=== PATIENT | male | born 1955 | race Caucasian/White ===

== ENCOUNTER 2022-08-03 08:01 | Outpatient (REF) | payer OTHER, SELFPAY ==
--- NOTE | ~2022-08-03 | XR_ITS ---
EXAMINATION: XR CHEST CLINICAL INFORMATION: Bariatric service evaluation, E66.01. COMPARISON: None TECHNIQUE: 2 views of the chest were obtained. FINDINGS: There are low lung volumes. The lungs are clear and the vascularity is normal. There is no airspace consolidation or groundglass opacity or effusion. The costophrenic sulci are clear. The heart is normal in size. The hilar and mediastinal contours are normal. There are multilevel degenerative changes thoracic spine. Moderate loss of height lower thoracic vertebral body as noted on lateral view with mild loss of height adjacent more superior vertebral body. No paraspinal soft tissue swelling. XR/XR chest 2V IMPRESSION: -Lungs clear. No acute intrathoracic disease. -Multilevel degenerative changes thoracic spine. Loss of height two lower thoracic vertebral bodies.
--- NOTE | 2022-08-03 08:17 | ECG_ITS ---
Test Reason : morbid obesity Blood Pressure : / mmHG Vent. Rate : 093 BPM Atrial Rate : 093 BPM P-R Int : 150 ms QRS Dur : 106 ms QT Int : 358 ms P-R-T Axes : 035 -32 025 degrees QTc Int : 445 ms Normal sinus rhythm Left anterior fascicular block Intra-ventricular conduction delay Minimal voltage criteria for LVH, may be normal variant ( R in aVL ) Abnormal ECG No previous ECGs available Referred By: Cristy Bolden Electronically Signed By:GUILLERMINA JARVIS MD
[2022-08-03 08:22] LABS: MANUAL DIFF FLAG NO
[2022-08-03 09:03] LABS: Basophils Absolute Auto 0.1 X10*3/uL (0.0-0.2); Basophils Percent Auto 0.9 % (0-2); Eosinophils Absolute Auto 0.2 X10*3/uL (0.0-0.4); Eosinophils Percent Auto 4.3 % (0-4); Hematocrit 44.1 % (42.0-52.0); Hemoglobin 14.5 g/dl (14.0-18.0); Imm Gran Abs Auto 0.01 X10*3/uL (0.00-0.03); Imm Gran Pct Auto 0.2 % (0.0-0.4); Lymphocytes Absolute Auto 2.3 X10*3/uL (1.2-4.9); Lymphocytes Percent Auto 39.9 % (20-40); Mean Corpuscular HGB Conc 32.9 g/dl (31.0-36.0); Mean Corpuscular Hemoglobin 30.1 pg (27.0-33.0); Mean Corpuscular Volume 91.5 fL (80.0-98.0); Mean Platelet Volume 10.1 fL (9.4-12.4); Monocytes Absolute Auto 0.5 X10*3/uL (0.1-1.2); Monocytes Percent Auto 9.2 % (2-11); Neutrophils Absolute Auto 2.6 x10*3/uL (2.0-8.3); Neutrophils Percent Auto 45.5 % (45-73); Platelet Count 279 X10*3/uL (160-400); Red Blood Count 4.82 X10*6/uL (4.60-5.80); Red Cell Distribution Width 12.8 % (11.0-16.0); White Blood Count 5.6 X10*3/uL (4.8-10.8)
[2022-08-03 09:06] LABS: Estimated Average Glucose 151 mg/dL; Hemoglobin A1c % 6.9 %
[2022-08-03 10:14] LABS: Alanine Aminotransferase 52 U/L (0-40); Albumin Level 4.2 g/dL (3.5-5.0); Alkaline Phosphatase 57 U/L (39-117); Anion Gap 14 (12-20); Aspartate Amino Transferase 26 U/L (5-37); Bilirubin Total 0.5 mg/dL (0.0-1.0); Blood Urea Nitrogen 13 mg/dL (9-16); C Reactive Protein 0.11 mg/dL (< or = 0.50); Calcium 9.2 mg/dL (8.4-10.2); Carbon Dioxide 24 mmol/L (22-29); Chloride 103 mmol/L (96-108); Cholesterol 143 mg/dL; Estimated Glomerular Filt Rate > 60; Ferritin 122 ng/mL (20-250); Glucose Random 118 mg/dL (60-115); HDL Cholesterol 32 mg/dL; Insulin 18 uU/mL (2-29); Iron 106 mcg/dL (45-160); LDL Cholesterol Calculated 83 mg/dl; Percent Iron Saturation 34 % (15-50); Potassium 4.2 mmol/L (3.3-5.1); Sodium 137 mmol/L (135-145); TSH reflex Free T4 3.77 uIU/mL (0.32-4.0); Total Iron Binding Capacity 311 mcg/dL (228-428); Total Protein 7.4 g/dL (6.5-8.0); Triglycerides 140 mg/dL; Unsaturated Iron Binding 205 ug/dL; Vitamin D 25-OH Total 33.6 ng/mL (>30)
[2022-08-03 10:26] LABS: Folate 16.1 ng/mL (> or = 4.0); Vitamin B12 682 pg/mL (200-900)
[2022-08-05 12:22] LABS: Calcium (PTHI) 9.4 mg/dL (8.6-10.3); PTHI 47 pg/mL (16-77)
[2022-08-07 00:34] LABS: Zinc 82 mcg/dL (60-130)
[2022-08-07 14:38] LABS: Vitamin A 55 mcg/dL (38-98)
[2022-08-08 14:28] LABS: Vitamin B1 19 nmol/L (8-30)
== END 2022-08-03 08:02 | disposition home or self-care (01) ==
LOC: HO.XRAY 08:01
PROVIDERS: PCP Internal Medicine; Visit Provider Physician Assistant
DX: E66.01 Morbid (severe) obesity due to excess calories (principal); I10 Essential (primary) hypertension; E11.9 Type 2 diabetes mellitus without complications; G47.33 Obstructive sleep apnea (adult) (pediatric); E78.5 Hyperlipidemia, unspecified; Z99.89 Dependence on other enabling machines and devices; Z90.3 Acquired absence of stomach [part of]
CPT/HCPCS: 36415; 71046; 80053; 80061; 82306; 82607; 82728; 82746; 83036; 83525; 83540; 83970; 84425; 84443; 84590; 84630; 85025; 86140; 93005

== ENCOUNTER 2022-08-18 07:08 | Outpatient (REF) | payer OTHER, SELFPAY ==
--- NOTE | ~2022-08-18 | CT_ITS ---
EXAMINATION: CT ABDOMEN AND PELVIS WITHOUT CONTRAST CLINICAL INFORMATION: Morbid/severe obesity due to excess calories. COMPARISON: None TECHNIQUE: Multidetector volumetric imaging was performed from the superior aspect of the liver through the pubic symphysis following oral contrast and Valsalva maneuver. Sagittal and coronal reformatted images were obtained on the technologist's workstation. This CT examination was performed using dose optimization techniques as appropriate, variously including the following: *Automated exposure control *Adjustment of mA and/or kV according to patient size (this includes techniques or standardized protocols for targeted exams where dose is matched to indication/reason for exam; i.e. extremities or head) *Use of iterative reconstruction technique DLP: 1092 mGy-cm FINDINGS: LUNG BASES: Mild atelectatic changes are seen in the right and minimal atelectatic changes in left lung base. LIVER, GALLBLADDER, AND BILIARY TREE: The liver is normal in size, shape, and attenuation. No focal hepatic lesion or biliary ductal dilatation is present. The gallbladder has been surgically removed. PANCREAS: Unremarkable. SPLEEN: Unremarkable. ADRENAL GLANDS: Unremarkable. KIDNEYS AND URETERS: The kidneys are normal in size, shape, and attenuation. There is a 6 mm nonobstructive radiopaque calculi lower pole and 3 mm nonobstructive calculi midpole right kidney without caliectasis or hydronephrosis. No radiopaque calculi are seen in left kidney. There is no hydronephrosis either. No perinephric stranding seen. BLADDER: Unremarkable. GASTROINTESTINAL TRACT: There is moderate scattered stool in the colon without distention. The small bowel loops are normal caliber. The appendix is faintly visualized within the herniated sac and appears normal. There is no free fluid. The stomach is nondistended. ABDOMINAL WALL: There is a large anterior abdominal wall hernia with a large wide neck measuring 17 cm wide and 6.8 cm in craniocaudad length. There are segments of peritoneum, transverse colon and small bowel loops within but no signs of obstruction or inflammatory process. There is gastric sleeve surgery of the stomach. LYMPH NODES: Normal. VASCULAR: Unremarkable. PELVIC VISCERA: Unremarkable. OSSEOUS STRUCTURES: No lytic or sclerotic process seen. There are degenerative disc changes at L5-S1 and T11-T12 disc levels. There is moderate ventral spondylosis throughout dorsal spine. No aggressive lytic or sclerotic process seen. CT/CT abdomen pelvis wo IV con IMPRESSION: 1. Large anterior abdominal wall hernia containing segments of small bowel, transverse colon and peritoneal fat. No signs of bowel obstruction or inflammatory process seen. 2. Nonobstructive radiopaque calculi lower pole and midpole right kidney. No hydronephrosis. 3. Moderate constipation without acute process. Fleischner guidelines were followed.
[2022-08-18] MEDS: Barium Sulfate Oral (Berry) 450 ML ORAL.SUSP 900 ML PO (09:21)
== END 2022-08-18 07:09 | disposition home or self-care (01) ==
LOC: HO.CT 07:08
PROVIDERS: PCP Internal Medicine; Visit Provider Physician Assistant
DX: E66.01 Morbid (severe) obesity due to excess calories (principal); Z90.3 Acquired absence of stomach [part of]; Z98.890 Other specified postprocedural states; Z87.19 Personal history of other diseases of the digestive system
CPT/HCPCS: 74176

== ENCOUNTER 2022-08-20 15:25 | Outpatient (REF) | payer OTHER, SELFPAY ==
[2022-08-21 14:11] LABS: H Pylori Breath Test Negative (Negative)
== END 2022-08-20 15:26 | disposition home or self-care (01) ==
LOC: HO.LNP 15:25
PROVIDERS: Visit Provider Physician Assistant
DX: E66.01 Morbid (severe) obesity due to excess calories (principal); I10 Essential (primary) hypertension; E11.9 Type 2 diabetes mellitus without complications; G47.33 Obstructive sleep apnea (adult) (pediatric); E78.5 Hyperlipidemia, unspecified; Z99.89 Dependence on other enabling machines and devices; Z90.3 Acquired absence of stomach [part of]; Z11.0 Encounter for screening for intestinal infectious diseases
CPT/HCPCS: 83013

== ENCOUNTER → 2022-08-28 08:37 | Outpatient (BNVA) | payer OTHER, SELFPAY | PROVIDERS: PCP Internal Medicine; Referring Provider Physician Assistant; Visit Provider Dietitian, Registered | DX: E66.01 Morbid (severe) obesity due to excess calories (principal); Z68.42 Body mass index [BMI] 45.0-49.9, adult | CPT/HCPCS: 97802 ==

== ENCOUNTER → 2022-09-11 08:20 | Outpatient (BNVA) | payer MEDICARE, OTHER, SELFPAY | PROVIDERS: PCP Internal Medicine; Visit Provider Physician Assistant | DX: E66.01 Morbid (severe) obesity due to excess calories (principal); Z68.42 Body mass index [BMI] 45.0-49.9, adult | CPT/HCPCS: 99212 ==

== ENCOUNTER 2022-09-17 07:30 | Outpatient (REF) | payer MEDICARE, OTHER, SELFPAY ==
--- NOTE | ~2022-09-17 | US_ITS ---
EXAMINATION: US COMPLETE ABDOMEN WITH LIVER ELASTOGRAPHY CLINICAL INFORMATION: Morbid obesity due to excess calories COMPARISON: CT abdomen and pelvis 06/18/2022. TECHNIQUE: Real-time imaging of the abdominal viscera. Noninvasive ultrasound liver fibrosis assessment is performed using Dominic ElastPQ point quantification shear wave elastography (2D-SWE) with a C5-2 MHz transducer. Multiple elastography samples are obtained. FINDINGS: PANCREAS: Normal. The visualized pancreatic head and body are normal in appearance. The remainder of the pancreas is obscured from visualization by the overlying bowel gas. ABDOMINAL AORTA: The proximal aorta is normal in caliber. The remainder of the aorta is obscured by bowel gas. INFERIOR VENA CAVA: Visualized portions are normal. LIVER: Diffusely increased hepatic echogenicity and sound attenuation consistent with diffuse hepatic steatosis. The right lobe measures 19.6 cm in length. The left lobe measures 8.7 cm in length. Portal flow is towards the liver (hepatopetal). Shear wave liver elastography median stiffness is 2.52 m/s (reference: normal median stiffness is 1.3 m/s or less). IQR/median stiffness to assess sampling precision is 0.19 (reference: good quality data set is IQR/median stiffness of 0.15 or less). GALLBLADDER: Cholecystectomy. COMMON BILE DUCT: Not seen. RIGHT KIDNEY: 9 mm echogenic, shadowing, nonobstructing right lower pole calculus. No hydronephrosis. No focal parenchymal lesions. The kidney measures 14.2 cm in maximum dimension. LEFT KIDNEY: Normal. No hydronephrosis. No renal calculi or focal parenchymal lesions. The kidney measures 13.2 cm in maximum dimension. SPLEEN: Normal. The spleen measures 9.0 cm in maximum dimension. FREE FLUID: None. US/US abdomen comp w elastography IMPRESSION: 1. Findings consistent with diffuse hepatic steatosis. Prior cholecystectomy. No biliary ductal dilatation. Nonobstructing 9 mm right lower pole renal calculus. 2. Liver elastography: Although measurements appear suggestive of clinically significant portal hypertension, there is statistical variability of the sampling which decreases accuracy. REFERENCE: Society of Radiologists in Ultrasound Liver Stiffness Thresholds (2019): LIVER STIFFNESS THRESHOLDS: *Liver Stiffness over 2.4 m/s: Suggestive of clinically significant portal hypertension. QUALITY OF DATA SET: *IQR/Median value over 0.15 implies a poor quality data set. OTHER CONSIDERATIONS: The stage of liver fibrosis may be overestimated in the setting of acute hepatitis, liver inflammation, elevated liver function tests, hepatic vascular congestion, obstructive cholestasis, non-fasting state, and infiltrative diseases such as amyloidosis and lymphoma. In some patients with NAFLD, the liver stiffness thresholds for compensated advanced chronic liver disease may be lower. In causes other than viral hepatitis and NAFLD, liver stiffness thresholds are not well established.
== END 2022-09-17 07:31 | disposition home or self-care (01) ==
LOC: HO.US 07:30
PROVIDERS: PCP Internal Medicine; Visit Provider Physician Assistant
DX: E66.01 Morbid (severe) obesity due to excess calories (principal); G47.33 Obstructive sleep apnea (adult) (pediatric); E11.9 Type 2 diabetes mellitus without complications; E78.5 Hyperlipidemia, unspecified; I10 Essential (primary) hypertension; Z90.3 Acquired absence of stomach [part of]; Z99.89 Dependence on other enabling machines and devices
CPT/HCPCS: 76705; 76981

== ENCOUNTER → 2022-09-23 12:30 | Outpatient (BNVA) | payer OTHER, MEDICARE, SELFPAY | PROVIDERS: PCP Internal Medicine; Referring Provider Physician Assistant; Visit Provider Counselor Mental Health | DX: F43.22 Adjustment disorder with anxiety (principal); E66.01 Morbid (severe) obesity due to excess calories; Z98.84 Bariatric surgery status; Z87.19 Personal history of other diseases of the digestive system; Z98.890 Other specified postprocedural states | CPT/HCPCS: 90791 ==

== ENCOUNTER → 2022-10-23 11:00 | Outpatient (BNVA) | payer MEDICARE, OTHER, SELFPAY | PROVIDERS: PCP Internal Medicine; Visit Provider Physician Assistant | DX: E66.01 Morbid (severe) obesity due to excess calories (principal); Z68.42 Body mass index [BMI] 45.0-49.9, adult; Z87.19 Personal history of other diseases of the digestive system; Z90.49 Acquired absence of other specified parts of digestive tract; Z96.642 Presence of left artificial hip joint; Z98.890 Other specified postprocedural states; Z90.3 Acquired absence of stomach [part of]; Z98.84 Bariatric surgery status | CPT/HCPCS: 90834; 99212; Q3014 ==

== ENCOUNTER 2022-10-27 09:29 | Outpatient (REF) | payer MEDICARE, OTHER, SELFPAY ==
--- NOTE | ~2022-10-27 | FL_ITS ---
EXAMINATION: XR FLUOROSCOPY UPPER GI WITH AIR CLINICAL INFORMATION: Obesity COMPARISON: None TECHNIQUE: Upper GI was performed using thin and thick barium and effervescent granules FINDINGS: Esophageal motility is normal. There is a small sliding-type hiatal hernia. There is mild gastroesophageal reflux. The stomach and duodenum are normal-appearing. No fold thickening, mass, ulcer or stricture is seen. FLUOROSCOPY TIME: 0.4 minutes DOSE AREA PRODUCT: 7 bro per centimeter squared. 18 saved fluoroscopic images. FL/FL upper GI w air IMPRESSION: Small sliding-type hiatal hernia. Mild gastroesophageal reflux.
== END 2022-10-27 09:30 | disposition home or self-care (01) ==
LOC: HO.XRAY 09:29
PROVIDERS: Visit Provider Physician Assistant
DX: E66.01 Morbid (severe) obesity due to excess calories (principal); Z90.3 Acquired absence of stomach [part of]
CPT/HCPCS: 74246

== ENCOUNTER → 2022-11-18 14:52 | Outpatient (BNVA) | payer MEDICARE, OTHER, SELFPAY | PROVIDERS: PCP Internal Medicine; Visit Provider Physician Assistant | DX: E66.01 Morbid (severe) obesity due to excess calories (principal); K43.9 Ventral hernia without obstruction or gangrene; Z68.42 Body mass index [BMI] 45.0-49.9, adult; Z98.84 Bariatric surgery status; Z90.3 Acquired absence of stomach [part of]; Z90.49 Acquired absence of other specified parts of digestive tract | CPT/HCPCS: 99212 ==

== ENCOUNTER → 2022-12-04 08:01 | Outpatient (BNVA) | payer MEDICARE, OTHER, SELFPAY | PROVIDERS: PCP Internal Medicine; Visit Provider Surgery | DX: E66.01 Morbid (severe) obesity due to excess calories (principal); Z68.42 Body mass index [BMI] 45.0-49.9, adult | CPT/HCPCS: Q3014 ==